=== PATIENT | female | born 1980 | race Two or more races ===

== ENCOUNTER 2024-08-31 21:33 | Emergency (ER) | payer MEDICARE, MEDICAID ==
[~2024-08-31] VITALS: Ht 177.8 cm; Wt 105.2 kg
[2024-08-31 22:26] LABS: Basophils # (auto) 0 10 ^3/uL (0-0.2); Basophils % (auto) 0.2 % (0.0-2.0); Eosinophils # (auto) 0.4 10 ^3/uL (0-0.8); Hematocrit 38.7 % (36.0-46.0); Hemoglobin 12.8 g/dL (12.2-16.2); Lymphocytes # (auto) 2.2 10 ^3/uL (0.4-5.4); Lymphocytes % (auto) 27.8 % (10.0-50.0); Mean Corpuscular Hgb Conc. 33.1 g/dL (32.0-36.0); Mean Corpuscular Volume 87.4 fL (80.0-100.0); Monocytes # (auto) 0.5 10 ^3/uL (0-1.3); Monocytes % (auto) 6.1 % (0.0-12.0); Neutrophils # (auto) 4.9 10 ^3/uL (1.6-8.6); Neutrophils % (auto) 60.9 % (37.0-80.0); Nucleated Red Blood Cells % 0.2 %; Platelet Count (auto) 293 10^3/uL (140-450); Red Blood Cells 4.42 10^6/uL (4.0-5.20); Red Cell Distribution Width 14.7 % (11.8-14.3)
--- NOTE | 2024-08-31 22:33 | ED.PDOC ---
History of Present Illness HPI Comments 44-year-old female with PMHx Non-Hodgkin Lymphoma presents with a chief complaint of pain at her devon cath site x onset this afternoon. Patient states that she had a new devon cath inserted today and believes that it was inserted incorrectly. Patient has edema and pain to the insertion site. She states home health nurse came to administer meds through the devon cath, however pt began experiencing pain, bleeding and leakage of meds from the catheter and swelling/fluid build-up around the insertion site. Patient is tearful in triage and states she cannot take any of her medications due to malfunction of her devon cath. Chief Complaint: Upper Extremity Time Seen by MD: 21:53 Reviewed Notes: Medications, Allergies Allergies: Coded Allergies: Ibuprofen (Verified Allergy, Unknown, 09/01/24) Information Source: Patient Mode of Arrival: Ambulatory Severity: Moderate Timing: Hours Duration: Since onset Prehospital treatment: None Past Medical History PAST MEDICAL HISTORY: Cancer, CVA, Seizures Past Medical History (Other): SVT, DVT Surgical History: Hysterectomy SAILING OFFICER History: Denies all SAILING OFFICER Hx Family History Family History: Reviewed,noncontributory to illness Social History Smoker: Non-Smoker Alcohol: Denies ETOH Use Drugs: Denies Drug Use Lives In: Home Constitutional: denies: chills, diaphoresis, fatigue, fever, malaise, sweats, weakness, others EENTM: denies: blurred vision, double vision, ear bleeding, ear discharge, ear drainage, ear pain, ear ringing, eye pain, eye redness, hearing loss, mouth pain, mouth swelling, nasal discharge, nose bleeding, nose congestion, nose pain, photophobia, tearing, throat pain, throat swelling, voice changes, others Respiratory: denies: cough, hemoptysis, orthopnea, SOB at rest, shortness of breath, SOB with excertion, stridor, wheezing, others Cardiovascular: denies: chest pain, dizzy spells, diaphoresis, Dyspnea on exertion, edema, irregular heart beat, left arm pain, lightheadedness, palpitations, PND, syncope, others Gastrointestinal: denies: abdomen distended, abdominal pain, blood streaked bowels, constipated, diarrhea, dysphagia, difficulty swallowing, hematemesis, melena, nausea, poor appetite, poor fluid intake, rectal bleeding, rectal pain, vomiting, others Genitourinary: denies: abnormal vagina bleeding, burning, dyspareunia, dysuria, flank pain, frequency, hematuria, incontinence, pain, , vagina discharge, urgency, others Neurological: denies: dizziness, fainting, headache, left sided numbness, left sided weakness, numbness, paresthesia, pre-existing deficit, right sided numbness, right sided weakness, seizure, speech problems, tingling, tremors, weakness, others Musculoskeletal: reports: muscle pain (DEVON CATH); denies: back pain, gout, joint pain, joint swelling, muscle stiffness, neck pain, others Integumetry: denies: bruises, change in color, change in hair/nails, dryness, laceration, lesions, lumps, rash, wounds, others Allergic/Immunocompromised: denies: Difficulty Healing, Frequent Infections, Hives, Itching, others Hematologic/Lymphatic: denies: anemia, blood clots, easy bleeding, easy bruising, swollen glands, others Endocrine: denies: excessive hunger, excessive sweating, excessive thirst, excessive urination, flushing, intolerance to cold, intolerance to heat, unexplained weight gain, unexplained weight loss, others Psychiatric: denies: anxiety, bipolar disorder, depression, hopeless, panic disorder, schizophrenia, sleepless, suicidal, others All Other Systems: Reviewed and Negative Physical Exam General Appearance: Mild Distress HEENT: Normal ENT Inspection Neck: Full Range of Motion, Normal Inspection Respiratory: Lungs Clear, No Accessory Muscle Use, No Respiratory Distress, Normal Breath Sounds Cardiovascular: No Edema, No JVD, Regular Rate/Rhythm Breast Exam: Deferred Gastrointestinal: Non Tender, Soft Genitalia: Deferred Pelvic: Deferred Rectal: Deferred Extremities: Normal inspection, Normal range of motion, Non-tender, No pedal edema Neurologic: Alert, No Motor Deficits, Normal Affect, Normal Mood, No Sensory Deficits Cerebellar Function: NOT DONE Reflexes: NOT DONE Skin: Dry, Normal Color, Warm, Other (R chest devon cath insertion site tender and edematous) Lymphatic: NOT DONE Was a procedure done? Was a procedure done?: No Differential Dx Considerations may include: devon cath dislodgement, occlusion or other type of malfunction, among others X-Ray, Labs, Meds, VS Vital Signs Date Time Temp Pulse Resp B/P (MAP) Pulse Ox O2 Delivery O2 Flow Rate FiO2 09/01/24 00:46 95 22 124/76 (92) 100 09/01/24 00:39 99 16 125/65 08/31/24 21:45 98.4 119 18 113/60 (77) 96 Lab Test 08/31/24 22:16 Range/Units White Blood Count 8.0 4.4-10.8 10^3/uL Red Blood Count 4.42 4.0-5.20 10^6/uL Hemoglobin 12.8 12.2-16.2 g/dL Hematocrit 38.7 36.0-46.0 % Mean Corpuscular Volume 87.4 80.0-100.0 fL Mean Corpuscular Hemoglobin 29.0 28.0-32.0 pg Mean Corpuscular Hemoglobin Concent 33.1 32.0-36.0 g/dL Red Cell Distribution Width 14.7 H 11.8-14.3 % Platelet Count 293 140-450 10^3/uL Mean Platelet Volume 7.2 6.9-10.8 fL Neutrophils (%) (Auto) 60.9 37.0-80.0 % Lymphocytes (%) (Auto) 27.8 10.0-50.0 % Monocytes (%) (Auto) 6.1 0.0-12.0 % Eosinophils (%) (Auto) 5.0 0.0-7.0 % Basophils (%) (Auto) 0.2 0.0-2.0 % Neutrophils # (Auto) 4.9 1.6-8.6 10 ^3/uL Lymphocytes # (Auto) 2.2 0.4-5.4 10 ^3/uL Monocytes # (Auto) 0.5 0-1.3 10 ^3/uL Eosinophils # (Auto) 0.4 0-0.8 10 ^3/uL Basophils # (Auto) 0 0-0.2 10 ^3/uL Nucleated Red Blood Cells 0.2 % Prothrombin Time 10.3 9.3-11.8 sec Prothrombin Time INR 0.97 0.9-1.15 Activated Partial Thromboplast Time 26.5 24.5-34.5 SEC Sodium Level 137 136-145 mmol/L Potassium Level 3.8 3.5-5.1 mmol/L Chloride Level 112 H 98-107 mmol/L Carbon Dioxide Level 21 20-31 mmol/L Anion Gap 4 L 5-15 Blood Urea Nitrogen 9 9-23 mg/dL Creatinine 1.14 H 0.550-1.02 mg/dL Glomerular Filtration Rate Calc 61 >90 mL/min BUN/Creatinine Ratio 7.9 L 10.0-20.0 Serum Glucose 136 H 74-106 mg/dL Calcium Level 9.2 8.7-10.4 mg/dL Current Medications Medications (Trade) Dose Ordered Sig/Manas Route Start Time Stop Time Status Last Admin Morphine Sulfate 4 mg ONCE ONCE IV 08/31/24 22:15 08/31/24 22:16 DC 09/01/24 00:39 Ondansetron HCl (Zofran) 4 mg ONCE ONCE IV 08/31/24 22:15 08/31/24 22:16 DC 09/01/24 00:38 Levetiracetam 100 ml @ 400 mls/hr ONCE ONCE IV 09/01/24 00:00 09/01/24 00:14 DC 09/01/24 00:37 Phenytoin Sodium 300 mg/Sodium Chloride 56 ml @ 224 mls/hr ONCE ONCE IV 09/01/24 00:00 09/01/24 00:14 DC 09/01/24 00:48 PROCEDURE(s): CXR1 - CHEST XRAY 1 VIEW REASON: portacath leaking and painful ORDER NUMBER(s): [id number], ACCESSION NUMBER(s): [id number] EXAM: XY CHEST XRAY 1 VIEW CLINICAL HISTORY: portacath leaking and painful TECHNIQUE: Single AP view of the chest WID: COMPARISON: None FINDINGS: Lines and tubes: Right-sided chest port with the tip projecting over the mid SVC. Chest: The heart size and pulmonary vasculature is within normal limits. No pleural effusion, pneumothorax, or consolidation. The osseous structures are grossly intact. IMPRESSION: No acute cardiopulmonary abnormality. X-Ray, Labs, Meds, VS Comment 44-year-old female with a history of non-Hodgkin's lymphoma, seizure disorder, gastroparesis, VTE presenting with Port-A-Cath malfunction and pain Vitals remarkable for heart rate 119 Exam remarkable for right chest Port-A-Cath site edematous and tender. Chest x-ray: IMPRESSION: No acute cardiopulmonary abnormality. CBC, BMP, coag panel unremarkable for any abnormality of acute significance Patient was treated with the following in the ED: We attempted to access the Port-A-Cath but were unsuccessful. We were able to establish a peripheral IV. Patient received her seizure medications, Keppra 1 g IV and Dilantin 300 mg IV. Patient also received morphine 4 mg and Zofran 4 mg x 2 for pain and nausea. Case was discussed with DANIELA Herrera, who stated the patient would have to be transferred, as we do not have the capability of inserting a new Port-A-Cath here. Case was discussed with Dr. Bates, IR at [facility], who agreed to accept the patient. Case was discussed with Dr. Zavaleta in the ED, who will accept the patient as an ER to ER transfer. Time of 1ST Reevaluation: 22:23 Reevaluation 1ST: Unchanged Time of 2ND Reevaluation: 02:11 Reevaluation 2ND: Improved Patient Education/Counseling: Diagnosis, Treatment, Prognosis Family Education/Counseling: No Family Present Departure 1 Departure Time of Disposition: 02:11 Impression: Primary Impression: Encounter for care related to Port-a-Cath Disposition: 02 SHORT TERM HOSPITAL Admit to: Med Surg Condition: Fair Critical Care Note Critical Care Time?: No Stability Stability form required: No Heart Score Heart Score: Heart Score Response (Comments) Value History N/A 0 EKG N/A 0 Age N/A 0 Risk Factors N/A 0 Troponin N/A 0 Total 0 I personally scribed for HARESH FAIRCHILD MD ([email or web address]) on 08/31/24 at 22:33. Electronically submitted by Dallas Gutierrez ([email or web address]). HARESH FAIRCHILD MD Aug 31, 2024 22:33
[2024-08-31 22:34] LABS: Chloride 112 mmol/L (98-107); Potassium 3.8 mmol/L (3.5-5.1); Sodium 137 mmol/L (136-145)
[2024-08-31 22:35] LABS: Anion Gap 4 (5-15); Calcium 9.2 mg/dL (8.7-10.4); Carbon Dioxide 21 mmol/L (20-31)
[2024-08-31 22:40] LABS: BUN/Creatinine Ratio 7.9 (10.0-20.0); Blood Urea Nitrogen 9 mg/dL (9-23); Glucose 136 mg/dL (74-106)
[2024-08-31 22:44] LABS: INR 0.97 (0.9-1.15); Partial Thromboplastin Time 26.5 SEC (24.5-34.5); Prothrombin Time 10.3 sec (9.3-11.8)
--- NOTE | 2024-08-31 22:51 | DVH ---
EXAM: XY CHEST XRAY 1 VIEW CLINICAL HISTORY: portacath leaking and painful TECHNIQUE: Single AP view of the chest WID: COMPARISON: None FINDINGS: Lines and tubes: Right-sided chest port with the tip projecting over the mid SVC. Chest: The heart size and pulmonary vasculature is within normal limits. No pleural effusion, pneumothorax, or consolidation. The osseous structures are grossly intact. IMPRESSION: No acute cardiopulmonary abnormality.
[2024-09-01] MEDS: levETIRAcetam 1000 mg/100ml 100 ML IV ONE (00:37)
[2024-09-01] MEDS: ONDANSETRON HCL 4 MG/2 ML VIAL IV ONE ×2 (00:38→02:15)
[2024-09-01] MEDS: MORPHINE SULFATE 4 MG/ML SYR/VIAL IV ONE ×2 (00:39→04:23)
[2024-09-01] MEDS: PHENYTOIN SODIUM 50 MG/ML 2ML VIAL IV ONE (00:48)
[2024-09-01] MEDS: PHENYTOIN IV DILANTIN 300 MG in SODIUM CHL 0.9% 50 ML IV ONE (00:48)
[2024-09-01 02:58] VITALS: PULSE 95; RESP 22; O2SAT 100
[2024-09-01 03:50] VITALS: TEMP 98.4; O2SAT 100
[2024-09-01 04:23] VITALS: BP 125/65; PULSE 99; RESP 14
[2024-09-01] MEDS: METOCLOPRAMIDE HCL 5MG/ml INJ 2ml VIAL IV ONE (04:23)
== END 2024-09-01 04:16 | disposition short-term general hospital (02) ==
LOC: ER 21:33
DX: T85.9XXA Unspecified complication of internal prosthetic device, implant and graft, initial encounter (principal); Z88.5 Allergy status to narcotic agent; Z86.73 Personal history of transient ischemic attack (TIA), and cerebral infarction without residual deficits; Z90.710 Acquired absence of both cervix and uterus
CPT/HCPCS: 36415; 71045; 80048; 85025; 85610; 85730; 96365; 96366; 96368; 96375; 96376; 99285; J1165; J1953; J2270; J2405; J2765

== ENCOUNTER 2024-11-01 03:57 | Emergency (ER) | payer MEDICARE, MEDICAID ==
[~2024-11-01] VITALS: Ht 177.8 cm; Wt 102.6 kg
--- NOTE | 2024-11-01 06:04 | DVH ---
CHEST RADIOGRAPH Indication: assess portacath placement Technique: Single frontal view of the chest was obtained COMPARISON: XY CHEST XRAY 1 VIEW on DOS: 08/31/24 FINDINGS: Lines and Tubes: Left chest port in satisfactory position. Lungs: Mild congestion Pleura: No effusion. No pneumothorax. Cardiomediastinal contours: Unremarkable Bones: Unremarkable IMPRESSION: Mild congestion
--- NOTE | 2024-11-01 06:43 | ED.PDOC ---
History of Present Illness HPI Comments 44F presents to the ER w/ prior Hx of Non-Hodgkin Lymphoma which is associated to the c/c of her vera cath site x onset this morning. Pt reports that she was given a new nurse this morning at 0200 and that the nurse "kept on poking me and I had a burning sensation when the nurse tried flushing it". Pt notes that she was supposed to be given a new medication. PMHx of Cancer, AFIB-not taking medications, CVA, SZ, SVT and DVT. SHx of Hysterectomy. Denies chills, fever, N/V/D, SOB, CP or other associated symptoms, modifiers or recent injuries or sick contact at this time. Chief Complaint: Tube Replacement Time Seen by MD: 06:15 Reviewed Notes: Nurses Notes, Medications, Allergies Allergies: Coded Allergies: Ibuprofen (Verified Allergy, Unknown, 09/01/24) Information Source: Patient Mode of Arrival: Ambulatory Severity: Moderate Timing: Hours Duration: Since onset, Hours Prehospital treatment: None Past Medical History PAST MEDICAL HISTORY: AFIB, Cancer, CVA, Seizures Past Medical History (Other): SVT, DVT and Non-Hodgkin Lymphoma Surgical History: Hysterectomy SECURITY RISK ANALYST History: Denies all SECURITY RISK ANALYST Hx Family History Family History: Reviewed,noncontributory to illness, Unknown Social History Smoker: Non-Smoker Alcohol: Denies ETOH Use Drugs: Denies Drug Use Lives In: Home Constitutional: reports: others (Tube uncomfortably); denies: chills, diaphoresis, fatigue, fever, malaise, sweats, weakness EENTM: denies: blurred vision, double vision, ear bleeding, ear discharge, ear drainage, ear pain, ear ringing, eye pain, eye redness, hearing loss, mouth pain, mouth swelling, nasal discharge, nose bleeding, nose congestion, nose pain, photophobia, tearing, throat pain, throat swelling, voice changes, others Respiratory: denies: cough, hemoptysis, orthopnea, SOB at rest, shortness of breath, SOB with excertion, stridor, wheezing, others Cardiovascular: denies: chest pain, dizzy spells, diaphoresis, Dyspnea on exertion, edema, irregular heart beat, left arm pain, lightheadedness, palpitations, PND, syncope, others Gastrointestinal: denies: abdomen distended, abdominal pain, blood streaked bowels, constipated, diarrhea, dysphagia, difficulty swallowing, hematemesis, melena, nausea, poor appetite, poor fluid intake, rectal bleeding, rectal pain, vomiting, others Genitourinary: denies: abnormal vagina bleeding, burning, dyspareunia, dysuria, flank pain, frequency, hematuria, incontinence, pain, , vagina discharge, urgency, others Neurological: denies: dizziness, fainting, headache, left sided numbness, left sided weakness, numbness, paresthesia, pre-existing deficit, right sided numbnes s, right sided weakness, seizure, speech problems, tingling, tremors, weakness, others Musculoskeletal: denies: back pain, gout, joint pain, joint swelling, muscle pain, muscle stiffness, neck pain, others Integumetry: denies: bruises, change in color, change in hair/nails, dryness, laceration, lesions, lumps, rash, wounds, others Allergic/Immunocompromised: denies: Difficulty Healing, Frequent Infections, Hives, Itching, others Hematologic/Lymphatic: denies: anemia, blood clots, easy bleeding, easy bruising, swollen glands, others Endocrine: denies: excessive hunger, excessive sweating, excessive thirst, excessive urination, flushing, intolerance to cold, intolerance to heat, unexplained weight gain, unexplained weight loss, others Psychiatric: denies: anxiety, bipolar disorder, depression, hopeless, panic disorder, schizophrenia, sleepless, suicidal, others All Other Systems: Reviewed and Negative Physical Exam Exam Comments Tachycardic General Appearance: No Apparent Distress, Normal HEENT: Normal ENT Inspection, Pharynx Normal, TMs Normal Neck: Full Range of Motion, Non-Tender, Normal, Normal Inspection Respiratory: Chest Non-Tender, Lungs Clear, No Accessory Muscle Use, No Respiratory Distress, Normal Breath Sounds Cardiovascular: No Edema, No JVD, No Murmur, No Gallop, Normal Peripheral Pulses, Tachycardia Breast Exam: Deferred Gastrointestinal: No Organomegaly, Non Tender, No Pulsatile Mass, Normal Bowel Sounds, Soft Genitalia: Deferred Pelvic: Deferred Rectal: Deferred Extremities: No calf tenderness, Normal capillary refill, Normal inspection, Normal range of motion, Non-tender, No pedal edema Musculoskeletal : Apperance: Normal Neurologic: Alert, ware carrier II-XII nml as Tested, No Motor Deficits, Normal Affect, Normal Mood, No Sensory Deficits Cerebellar Function: Normal Reflexes: Normal Skin: Dry, Normal Color, Warm Lymphatic: No Adenopathy Was a procedure done? Was a procedure done?: No Differential Dx Considerations may include: Pneumothorax hemothorax X-Ray, Labs, Meds, VS Vital Signs Date Time Temp Pulse Resp B/P (MAP) Pulse Ox O2 Delivery O2 Flow Rate FiO2 11/01/24 12:16 115 18 96 Room Air* 0 21 11/01/24 12:11 115 18 108/74 (85) 96 11/01/24 11:55 115 18 108/74 11/01/24 04:22 97.6 130 17 105/68 (80) 99 Current Medications Medications (Trade) Dose Ordered Sig/Manas Route Start Time Stop Time Status Last Admin Alteplase, Recombinant (Cathflo Activase 2MG) 2 mg ONCE ONCE IV 11/01/24 09:45 11/01/24 09:46 DC 11/01/24 09:50 Diphenhydramine HCl (Benadryl Injection) 50 mg ONCE ONCE IV 11/01/24 11:45 11/01/24 11:46 DC 11/01/24 11:54 Ondansetron HCl (Zofran) 4 mg ONCE ONCE IV 11/01/24 11:45 11/01/24 11:46 DC 11/01/24 11:54 Morphine Sulfate 2 mg ONCE ONCE IV 11/01/24 11:45 11/01/24 11:46 DC 11/01/24 11:55 Time of 1ST Reevaluation: 06:45 Reevaluation 1ST: Unchanged Patient Education/Counseling: Diagnosis, Treatment, Prognosis Family Education/Counseling: No Family Present Departure 1 Departure Time of Disposition: 11:51 Impression: Primary Impression: Encounter for care related to Port-a-Cath Disposition: 01 HOME / SELF CARE / HOMELESS Condition: Stable Additional Instructions: Thank you for visiting our Emergency Room. I wish you full and complete recovery. Please follow the following instructions: 1. Take your medication bottles with you to EVERY DOCTOR'S VISIT (including your primary doctor). 2. Please follow up with your primary doctor in 2-3 days or sooner if symptoms do not improve. 3. Please read all the papers given to you at the time of the discharge so that you understand your condition better. 4. Please note that the emergency room visits are focused and not necessarily comprehensive. Therefore, it is possible that some occult medical conditions may go undiagnosed in the ER. 5. The emergency room visits are not and should not be thought of as replacement for regular visits with your primary doctor. 6. Therefore, it is absolutely critical that you follows up with your primary doctor on regular basis to make sure you receives a complete and comprehensive care. 7. I recommended the you take the hospital discharge papers to your primary care physician and other doctors' offices with you. 8. Go to your nearest emergency room if you think your condition gets worse or you think your condition is an emergency. Discharged With: Self Critical Care Note Critical Care Time?: No Stability Stability form required: No I personally scribed for LUIS STRICKLAND MD ([email or web address]) on 11/01/24 at 06:43. Electronically submitted by Raúl Saavedra ([email or web address]). LUIS STRICKLAND MD Nov 01, 2024 06:43
[2024-11-01] MEDS: CATHFLO ACTIVASE (ALTEPLASE) 2 MG VIAL IV ONE (09:50)
[2024-11-01] MEDS: ONDANSETRON HCL 4 MG/2 ML VIAL IV ONE (11:54)
[2024-11-01] MEDS: diphenhdrAMINE HCL 50 MG/1 ML VL IV ONE (11:54)
[2024-11-01] MEDS: MORPHINE SULFATE INJ 2 MG/ml SYRG IV ONE (11:55)
[2024-11-01] MEDS: ONDANSETRON ODT 4 MG TAB PO ONE (11:55)
[2024-11-01 12:11] VITALS: BP 108/74
[2024-11-01 12:16] VITALS: PULSE 115; RESP 18; O2SAT 96
== END 2024-11-01 12:24 | disposition home or self-care (01) ==
LOC: ER 03:57
DX: Z45.2 Encounter for adjustment and management of vascular access device (principal); I48.91 Unspecified atrial fibrillation; R56.9 Unspecified convulsions; Z86.73 Personal history of transient ischemic attack (TIA), and cerebral infarction without residual deficits; Z85.72 Personal history of non-Hodgkin lymphomas; Z90.710 Acquired absence of both cervix and uterus; Z88.6 Allergy status to analgesic agent; Z86.718 Personal history of other venous thrombosis and embolism
CPT/HCPCS: 71045; 96374; 96375; 99284; J1200; J2270; J2405; J2997

== ENCOUNTER 2025-03-13 16:03 | Emergency (ER) | payer MEDICARE, MEDICAID ==
[~2025-03-13] VITALS: Ht 177.8 cm; Wt 102.0 kg
[2025-03-13 17:05] VITALS: BP 120/81; PULSE 93; RESP 22; TEMP 98.4; O2SAT 100
--- NOTE | 2025-03-13 17:11 | ED.PDOC ---
SOB-HPI HPI Comments 44 y/o F, with PMHx of Non-Hodgkin's Lymphoma, SVT, and epilepsy presents to the ED for CC of shortness of breath. Patient states, she has been experiencing shortness of breath with associated substernal chest pain that radiates to her left axilla onset, today (03/13/25). Patient reports, similar symptoms in past and was told to have supraventricular tachycardia. Patient comments, taking prescribed medication as recommended; endorses taking 750mg Keppra. Patient denies cough, fever, chills, headache, nausea, or vomiting. No other symptoms, or modifying factors present at this time. Chief Complaint: Shortness of Breath Time Seen by MD: 17:02 Reviewed notes: Nurses Notes, Medications, Allergies Information Source: Patient Mode of Arrival: Ambulatory Severity: Moderate Timing: Hours Duration: Since onset Context: At Rest PE Risk Factors: None History of: None Prehospital treatment: None Modifying Factors: Nothing Associated Signs and Symptoms: Chest Pain Radiation: Other (LEFT AXILLA) Location: Substernal Past Medical History PAST MEDICAL HISTORY: AFIB, Cancer, CVA, Seizures Surgical History: Hysterectomy WATCH REPAIRER History: Denies all WATCH REPAIRER Hx Family History Family History: Reviewed,noncontributory to illness, Unknown Social History Smoker: Non-Smoker Alcohol: Denies ETOH Use Drugs: Denies Drug Use Lives In: Home Constitutional: denies: chills, diaphoresis, fatigue, fever, malaise, sweats, weakness, others EENTM: denies: blurred vision, double vision, ear bleeding, ear discharge, ear drainage, ear pain, ear ringing, eye pain, eye redness, hearing loss, mouth pain, mouth swelling, nasal discharge, nose bleeding, nose congestion, nose pain, photophobia, tearing, throat pain, throat swelling, voice changes, others Respiratory: reports: shortness of breath; denies: cough, hemoptysis, orthopnea, SOB at rest, SOB with excertion, stridor, wheezing, others Cardiovascular: reports: chest pain; denies: dizzy spells, diaphoresis, Dyspnea on exertion, edema, irregular heart beat, left arm pain, lightheadedness, palpitations, PND, syncope, others Gastrointestinal: denies: abdomen distended, abdominal pain, blood streaked bowels, constipated, diarrhea, dysphagia, difficulty swallowing, hematemesis, melena, nausea, poor appetite, poor fluid intake, rectal bleeding, rectal pain, vomiting, others Genitourinary: denies: abnormal vagina bleeding, burning, dyspareunia, dysuria, flank pain, frequency, hematuria, incontinence, pain, , vagina discharge, urgency, others Neurological: denies: dizziness, fainting, headache, left sided numbness, left sided weakness, numbness, paresthesia, pre-existing deficit, right sided numbness, right sided weakness, seizure, speech problems, tingling, tremors, weakness, others Musculoskeletal: denies: back pain, gout, joint pain, joint swelling, muscle pain, muscle stiffness, neck pain, others Integumetry: denies: bruises, change in color, change in hair/nails, dryness, laceration, lesions, lumps, rash, wounds, others Allergic/Immunocompromised: denies: Difficulty Healing, Frequent Infections, Hives, Itching, others Hematologic/Lymphatic: denies: anemia, blood clots, easy bleeding, easy bruising, swollen glands, others Endocrine: denies: excessive hunger, excessive sweating, excessive thirst, excessive urination, flushing, intolerance to cold, intolerance to heat, unexplained weight gain, unexplained weight loss, others Psychiatric: denies: anxiety, bipolar disorder, depression, hopeless, panic disorder, schizophrenia, sleepless, suicidal, others All Other Systems: Reviewed and Negative Physical Exam General Appearance: No Apparent Distress, Normal, Other (RIGHT PORT-A-CATH) HEENT: Normal ENT Inspection, Pharynx Normal, TMs Normal Neck: Full Range of Motion, Non-Tender, Normal, Normal Inspection Respiratory: Chest Non-Tender, Lungs Clear, No Accessory Muscle Use, No Respiratory Distress, Normal Breath Sounds Cardiovascular: No Edema, No Murmur, No Gallop, Normal Peripheral Pulses, Tachycardia Breast Exam: Deferred Gastrointestinal: No Organomegaly, Non Tender, No Pulsatile Mass, Normal Bowel Sounds, Soft Genitalia: Deferred Pelvic: Deferred Rectal: Deferred Extremities: No calf tenderness, Normal capillary refill, Normal inspection, Normal range of motion, Non-tender, No pedal edema Musculoskeletal : Apperance: Normal Neurologic: Alert, putty glazer II-XII nml as Tested, No Motor Deficits, Normal Affect, Normal Mood, No Sensory Deficits Cerebellar Function: Normal Reflexes: Normal Skin: Dry, Normal Color, Warm Lymphatic: No Adenopathy Was a procedure done? Was a procedure done?: No Differential Dx Differential Diagnosis: Anxiety, Asthma, Bronchitis, CHF, COPD, Dysrhythmia, Hyperventilation, Myocardial infarction, Panic Attack, Pneumonia, Pneumothorax, PSVT, Pulmonary Embolism, Respiratory Distress, Pharyngitis, URI X-Ray, Labs, Meds, VS Vital Signs Date Time Temp Pulse Resp B/P (MAP) Pulse Ox O2 Delivery O2 Flow Rate FiO2 03/13/25 17:05 Nasal Cannula* 3 32 03/13/25 17:05 98.4 93 22 120/81 (94) 100 98.4 03/13/25 17:04 83 03/13/25 16:22 98.4 104 24 120/69 (86) 99 98.4 03/13/25 16:17 104 Lab Test 03/13/25 17:25 03/13/25 16:17 Range/Units Troponin I High Sensitivity < 3 L < 3 L </=34 ng/L White Blood Count 6.9 4.4-10.8 10^3/uL Red Blood Count 4.14 4.0-5.20 10^6/uL Hemoglobin 11.5 L 12.2-16.2 g/dL Hematocrit 35.0 L 36.0-46.0 % Mean Corpuscular Volume 84.5 80.0-100.0 fL Mean Corpuscular Hemoglobin 27.7 L 28.0-32.0 pg Mean Corpuscular Hemoglobin Concent 32.7 32.0-36.0 g/dL Red Cell Distribution Width 15.9 H 11.8-14.3 % Platelet Count 286 140-450 10^3/uL Mean Platelet Volume 7.4 6.9-10.8 fL Neutrophils (%) (Auto) 69.3 37.0-80.0 % Lymphocytes (%) (Auto) 19.1 10.0-50.0 % Monocytes (%) (Auto) 5.6 0.0-12.0 % Eosinophils (%) (Auto) 5.2 0.0-7.0 % Basophils (%) (Auto) 0.8 0.0-2.0 % Neutrophils # (Auto) 4.8 1.6-8.6 10 ^3/uL Lymphocytes # (Auto) 1.3 0.4-5.4 10 ^3/uL Monocytes # (Auto) 0.4 0-1.3 10 ^3/uL Eosinophils # (Auto) 0.4 0-0.8 10 ^3/uL Basophils # (Auto) 0.1 0-0.2 10 ^3/uL Nucleated Red Blood Cells 0.1 % Sodium Level 142 136-145 mmol/L Potassium Level 4.1 3.5-5.1 mmol/L Chloride Level 110 H 98-107 mmol/L Carbon Dioxide Level 20 20-31 mmol/L Anion Gap 12 5-15 Blood Urea Nitrogen 11 9-23 mg/dL Creatinine 1.02 0.550-1.02 mg/dL Glomerular Filtration Rate Calc 69 >90 mL/min BUN/Creatinine Ratio 10.8 10.0-20.0 Serum Glucose 103 74-106 mg/dL Calcium Level 9.9 8.7-10.4 mg/dL Current Medications Medications (Trade) Dose Ordered Sig/Manas Route Start Time Stop Time Status Last Admin Levetiracetam (Keppra Tablet) 750 mg ONCE ONCE PO 03/13/25 17:45 03/13/25 17:46 DC 03/13/25 17:56 Ondansetron HCl (Zofran Po) 4 mg ONCE ONCE PO 03/13/25 17:45 03/13/25 17:46 DC 03/13/25 17:56 [place] [id number] Ph: [phone] DIAGNOSTIC IMAGING Diagnostic Imaging Report : [id number] Signed PATIENT: PAULINA VINCENT ACCT: [id number] UNIT: [id number] : 1980 LOC: ER ROOM / BED: / AGE / SEX: 44 / F ADM STATUS: REG ER SERVICE 1701 ORDERING PHYSICIAN: EVERETTE CONNORS MD PROCEDURE(s): CXRP - CHEST PORTABLE REASON: sob ORDER NUMBER(s): [id number], ACCESSION NUMBER(s): [id number] CHEST RADIOGRAPH Indication: sob Technique: Single frontal view of the chest was obtained COMPARISON: XY CHEST XRAY 1 VIEW on DOS: 11/01/24, XY CHEST XRAY 1 VIEW on DOS: 08/31/24 FINDINGS: Lines and Tubes: Left-sided port is seen with tip in the lower SVC Lungs: Clear Pleura: No effusion. No pneumothorax. Cardiomediastinal contours: Unremarkable Bones: Unremarkable IMPRESSION: 1. No acute disease. ATED BY: CANDACE LARA MD DICTATED DATE/TIME: 03/13/251821 SIGNED BY: CANDACE LARA MD SIGNED DATE/TIME: 03/13/251821 CC: Time of 1ST Reevaluation: 17:32 Reevaluation 1ST: Unchanged Time of 2ND Reevaluation: 18:53 Reevaluation 2ND: pt left Patient Education/Counseling: Diagnosis, Treatment, Prognosis, Need For Follow Up Family Education/Counseling: No Family Present Additional Information Previous visits reviewed: 11/01/24 DX: ENCOUNTER FOR CARE RELATED TO PORT-A-CATH The following tests were ordered, and results were reviewed by me: TROPONIN X3, BMP, CBC, EKG, CT ANGIO CHEST CONTRAST I reviewed and agreed with the following test results read by other providers: CT ANGIO CHEST CONTRAST I discussed treatment and results with medical personnel and: patient Comprehensive systems review obtained and negative except for what is stated in the HPI. pt felt better and suddenly told RN she is leaving. i went to reasses and update her, but apparently just missed her Departure 1 Departure Time of Disposition: 18:54 Impression: Primary Impression: Dyspnea Qualified Codes: R06.00 - Dyspnea, unspecified Additional Impression: Tachycardia Disposition: 07 LEFT AWOL/ELOPED Condition: Other (unknown) Discharged With: Self Critical Care Note Critical Care Time?: Yes (55 min-critical care time only) Critical care comment: due to concerns for patient's condition deteriorating, the care required my highest level of attention and readiness to intervene. i assessed the patient's condition, ordered the proper tests and treatments, reassessed for response and reviewed the results. i communicated with medical personnel and formulated a plan of care. total critical care time does not include any procedures Stability Stability form required: No Heart Score Heart Score: Heart Score Response (Comments) Value History N/A 0 EKG N/A 0 Age N/A 0 Risk Factors N/A 0 Troponin N/A 0 Total 0 I personally scribed for [facility]ET[facility]ORS [facility] on 03/13/25 at 17:11. Electronically submitted by Radha Mcknight ([email or web address]). I personally scribed for EVERETTE CONNORS MD ([facility]) on 03/13/25 at 18:13. Electronically submitted by Radha Mcknight ([email or web address]). I personally scribed for EVERETTE CONNORS MD ([facility]) on 03/13/25 at 18:17. Electronically submitted by Radha Mcknight ([email or web address]). I personally scribed for EVERETTE CONNORS MD ([facility]) on 03/13/25 at 18:26. Electronically submitted by Radha Mcknight ([email or web address]). EVERETTE CONNORS MD March 13, 2025 17:11
[2025-03-13 17:19] LABS: Basophils # (auto) 0.1 10 ^3/uL (0-0.2); Basophils % (auto) 0.8 % (0.0-2.0); Eosinophils # (auto) 0.4 10 ^3/uL (0-0.8); Eosinophils % (auto) 5.2 % (0.0-7.0); Hemoglobin 11.5 g/dL (12.2-16.2); Lymphocytes # (auto) 1.3 10 ^3/uL (0.4-5.4); Lymphocytes % (auto) 19.1 % (10.0-50.0); Mean Corpuscular Hemoglobin 27.7 pg (28.0-32.0); Mean Corpuscular Hgb Conc. 32.7 g/dL (32.0-36.0); Mean Corpuscular Volume 84.5 fL (80.0-100.0); Monocytes # (auto) 0.4 10 ^3/uL (0-1.3); Monocytes % (auto) 5.6 % (0.0-12.0); Neutrophils # (auto) 4.8 10 ^3/uL (1.6-8.6); Neutrophils % (auto) 69.3 % (37.0-80.0); Nucleated Red Blood Cells % 0.1 %; Platelet Count (auto) 286 10^3/uL (140-450); Red Blood Cells 4.14 10^6/uL (4.0-5.20); Red Cell Distribution Width 15.9 % (11.8-14.3); White Blood Cell 6.9 10^3/uL (4.4-10.8)
[2025-03-13 17:29] LABS: Potassium 4.1 mmol/L (3.5-5.1); Sodium 142 mmol/L (136-145)
[2025-03-13 17:30] LABS: Anion Gap 12 (5-15); Calcium 9.9 mg/dL (8.7-10.4); Carbon Dioxide 20 mmol/L (20-31)
[2025-03-13 17:35] LABS: BUN/Creatinine Ratio 10.8 (10.0-20.0); Blood Urea Nitrogen 11 mg/dL (9-23); Glucose 103 mg/dL (74-106)
[2025-03-13 17:40] LABS: Chloride 110 mmol/L (98-107)
[2025-03-13] MEDS: ONDANSETRON ODT 4 MG TAB PO ONE (17:56)
[2025-03-13] MEDS: levETIRAcetam 500 MG TAB PO ONE (17:56)
[2025-03-13] MEDS ORDERED: IOHEXOL 350 MG/ML 100ML IJ ONE (18:09)
--- NOTE | 2025-03-13 18:25 | DVH ---
CHEST RADIOGRAPH Indication: sob Technique: Single frontal view of the chest was obtained COMPARISON: XY CHEST XRAY 1 VIEW on DOS: 11/01/24, XY CHEST XRAY 1 VIEW on DOS: 08/31/24 FINDINGS: Lines and Tubes: Left-sided port is seen with tip in the lower SVC Lungs: Clear Pleura: No effusion. No pneumothorax. Cardiomediastinal contours: Unremarkable Bones: Unremarkable IMPRESSION: 1. No acute disease.
--- NOTE | 2025-03-13 18:39 | DVH ---
CTA Chest with intravenous contrast INDICATION: Shortness of breath COMPARISON: None TECHNIQUE: Multidetector spiral CTA of the chest was performed of the chest with intravenous contrast . PULMONARY ANGIOGRAPHY PROTOCOL was utilized using a bolus-tracking technique centered on the main p ulmonary artery. Axial, coronal and sagittal multiplanar and MIP reformats were performed. Radiation Dose : 1. Chest: CTDI volume is 16.4 mGy. Dose-length product is 560 mGy*cm The dose indicators for CT are the volume Computed Tomography (CT) Dose Index (CTDIvol) and the Dose Length Product (DLP), and are measured in units of mGy and mGy-cm, respectively. These indicators are not patient dose, but values generated from the CT scanner acquisition factors. The report includes radiation exposure data for exposures received during this examination. Findings: Pulmonary artery: No pulmonary embolism Lower neck: Normal thyroid. Lungs: No focal consolidation, pleural effusion or pneumothorax. Heart/Vascular Structures: Normal heart size. No pericardial effusion. Lymph Nodes: No adenopathy Pleura: No pleural effusion or significant pneumothorax. Musculoskeletal: No acute osseous abnormality. Soft tissues: Normal. Upper abdomen: Limited portions of the upper abdomen are unremarkable. IMPRESSION: 1. No pulmonary embolism. 2. No acute thoracic finding.
--- NOTE | 2025-03-16 13:09 | ECG ---
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
== END 2025-03-13 18:52 | disposition left against medical advice (07) ==
LOC: ER 16:03
DX: R06.02 Shortness of breath (principal); R00.0 Tachycardia, unspecified; I48.91 Unspecified atrial fibrillation; G40.909 Epilepsy, unspecified, not intractable, without status epilepticus; Z85.9 Personal history of malignant neoplasm, unspecified; Z86.73 Personal history of transient ischemic attack (TIA), and cerebral infarction without residual deficits; Z90.710 Acquired absence of both cervix and uterus
CPT/HCPCS: 36415; 71045; 71275; 80048; 84484; 85025; 93005; 99285; Q0162; Q9967